=== PATIENT | female | born 1980 | race Caucasian/White ===

== ENCOUNTER → 2016-10-11 | Day surgery (SDC) | payer OTHER ==
--- NOTE | 2016-10-07 16:07 | GHP ---
[f rep st] PREOP HISTORY AND PHYSICAL DATE OF ADMISSION: 10/11/2016 Scheduled date of surgery is Tuesday October 11, 2016 at 9:30 a.m. SURGERY TO BE PERFORMED: Suction dilation and curettage. PREOPERATIVE DIAGNOSIS: Incomplete . HISTORY OF PRESENT ILLNESS: The patient is a 36-year-old, 1, para 0-0-1 -0, with a last menstrual period of August 05, 2016. She began having some cramping and brown spotting the middle of September and she presented to our office for an evaluation. She had had a positive urine test with a normal rising quantitative beta HCG. Ultrasound on September 21 revealed size less than dates by 6 days, a low-lying gestational sac, no pole or yolk sac, probable missed . The patient was given treatment options at that time and she chose to have expectant management. She began passing blood and tissue with strong cramping on September 23. She had bleeding for approximately a week and then it has resolved. Today she had a followup ultrasound to ensure there were no retained products of conception and there is retained tissue in the uterus. Ultrasound today revealed a 14 x 7 x 9 mm solid mass and fluid within the upper endometrial wall with a feeder vessel, appears to be probable products of conception. Other than that, her ultrasound was normal. Today I offered the patient treatment options of medical management versus surgical management and patient chose to have surgical management with a suction dilation and curettage. The patient has no significant medical problems, just includes a history of migraines and a history of plantar fasciitis. She has never been prior to this . SURGICAL HISTORY: Significant for emergency appendectomy and hernia repair in 2013, a lap choly in 2007 and a tonsillectomy when she was a child. MEDICATIONS: Include folic acid, vitamin D, magnesium and nasal spray for allergies. ALLERGIES: She is allergic to salic acid face wash, causes irritation and sensitivity. 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 Normal length of cycles. She has been following her ovulation predictor kits and trying to conceive for approximately a year and a half and her has had an abnormal semen analysis. They have tried Clomid cycles and were in the process of trying IUI with [facility] when she conceived spontaneously. She has no history of any abnormal Paps. Her most recent Pap was in June and no history of any STDs. SOCIAL HISTORY: She is . 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 She denies tobacco. She has alcohol moderately 1-2 times a week and no drug use. FAMILY HISTORY: Mom has a history of osteoporosis and her parents both have high blood pressure. Her sister has had a blood clot in her brain and her maternal grandmother had ovarian cancer. REVIEW OF SYSTEMS: Today a 10-point review of systems is negative. She has no complaints today. SUBJECTIVE: VITAL SIGNS: Blood pressure is 102/52. Weight is 187.8. GENERAL : She is well-developed, well-nourished white female, in no acute distress. LUNGS: Clear to auscultation bilaterally. HEART: Regular rate and rhythm. No murmurs. ABDOMEN: Soft, nontender, nondistended. Normal bowel sounds. PELVIC: Deferred for the operating room. ASSESSMENT/PLAN: A 36-year-old, 1, para 0-0-1-0, with an incomplete , retained products of conception. Patient is electing to have a suction dilation curettage. The patient was consented for the procedure. She understood the risks and benefits. The risks including bleeding, infection, damage to the uterus including possible risk of perforation, damage to other organs if perforation were to occur, incomplete removal of all the tissue with need for spontaneous expulsion or repeat procedure, and compromise of future fertility. She understood these risks and benefits and agreed to proceed. /[id number]/MODL MTDD
[~2016-10-11] MED LIST: DEXAMETHASONE 4 MG/ML VIAL ONE; DOXYCYCLINE HYCLATE 100 MG CAP/TAB PO ONE; KETOROLAC 30 MG/1 ML SDV ONE; LIDOCAINE 2% 5 ML SDV ONE; MIDAZOLAM 2 MG/2 ML VIAL IVP ONE; MIDAZOLAM 2 MG/2 ML VIAL ONE; ONDANSETRON 4 MG/2 ML VIAL ONE; PROPOFOL 200 MG/20 ML VIAL ONE; fentaNYL 100 MCG/2 ML INJ ONE
--- NOTE | 2016-10-11 11:12 | GOP ---
[f rep st] OPERATIVE REPORT DATE OF OPERATION: 10/11/2016 SURGEON: Pam Yun DO ANESTHESIA: General with LMA. ANESTHESIOLOGIST: Reji Sandoval MD PREOPERATIVE DIAGNOSIS: Retained products of conception. POSTOPERATIVE DIAGNOSIS: Retained products of conception. PROCEDURE PERFORMED: Suction dilation and curettage. FINDINGS: 1. Mobile midposition uterus with no adnexal masses. 1. A small amount of suction curette tissue. 2. SPECIMENS: Retained products of conception. ESTIMATED BLOOD LOSS: 5 cc. INDICATIONS: The patient is a 36-year-old, 1, para 0-0-1-0 with a last menstrual period of August 05, 2016. The patient has a long history of infertility conceived spontaneously in August. She had an ultrasound in September, which revealed size less than dates by 6 days with a low-lying gestatio nal sac, no pole or yolk sac. A diagnosis of missed was made. Patient was given man agement options. She elected for expectant management and had passed the majority of the products o f conception. She had an ultrasound to ensure that there was no retained products of conception and there was retained tissue in the uterus measuring 14 x 7 x 9 mm in the upper endometrial wall with feeder vessels. Management options were reviewed with the patient. The patient has elected to proc eed with the suction dilation and curettage. Risks and benefits of the procedure were reviewed with the patient, and the patient was properly consented. DESCRIPTION OF PROCEDURE: Patient was taken to the operating room with intravenous fluids in place. She was then placed on the operating room table in the dorsal supine position where general anesth esia with LMA was obtained. She was then repositioned into the dorsal lithotomy position with the Y ellofin stirrups and prepped and draped in normal sterile fashion. Exam under anesthesia revealed a mobile mid position uterus with no adnexal masses. A speculum was then placed in the patient's vag damian. An Allis clamp was used to grasp the anterior lip of the cervix. The cervix was then carefull y dilated to allow for the induction up to a 9-Portuguese. A 9 curved suction Portuguese curette was then i ntroduced, and a circumferential curettage was performed. A small amount of products of conception were noted. A sharp metal curette was then introduced, and a gentle curettage was performed circumf erentially. Suction curette was then reintroduced 1 additional time. No additional products of con ception were noted. Instruments were then removed from the patient's vagina. Transvaginal ultrasou nd was performed, and a thin endometrial stripe was noted. Speculum was then re-placed in the patie nt's vagina. Bleeding was noted to be minimal. Patient was returned to the dorsal supine position where she was easily awoken from anesthesia. Sponge count was correct. The patient was transferred to recovery room in stable condition. /[id number]/MODL
== END | disposition home or self-care (01) ==
LOC: FOBOP 08:31 → EDSTATUS 09:30
PROVIDERS: ATTEND Obstetrics & Gynecology
PROC: 10D17ZZ Extraction of Products of Conception, Retained, Via Natural or Artificial Opening (ICD-10-PCS; principal; 2016-10-11)
DX: O03.4 Incomplete spontaneous abortion without complication (principal)
CPT/HCPCS: J1100; J1885; J2250; J2405; J2704; J3010